=== PATIENT | male | born 1975 | race Caucasian/White ===

== ENCOUNTER 2020-02-26 14:24 | Emergency (ER) | payer OTHER ==
[~2020-02-26] VITALS: Ht 175.3 cm; Wt 108.9 kg
[~2020-02-26 14:24] MED LIST: CIPROFLOXACIN500 M1 PO; IBUPROFEN 600600 M1 PO; IMODIUM MULTI-1 EACH PO; NOHOMEMEDICATIONS; NORCO 5-325 TA1 EACH PO; PROTONIX40 MG PO; ZANTAC 150MG T150 MG PO; ZOFRAN ODT4 MG PO
[2020-02-26] MEDS ORDERED: IBUPROFEN 800800 MG PO (15:19)
[2020-02-26] MEDS ORDERED: TESSALON PERLE100 MG PO (15:19)
[2020-02-26 15:50] VITALS: BP 128/59
--- NOTE | 2020-02-27 07:31 | EKG ---
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 : 1975 Requested By: Adrián Jalloh Order Number: [id number] MD: Eduardo Cuello Measurements Intervals [place] Rate: 89 P: 71 VT: 135 QRS: 29 QRSD: 81 T: 57 QT: 341 QTc: 415 Interpretive Statements Sinus rhythm Probable left atrial enlargement Probable anteroseptal infarct, old Compared to ECG 12/30/2015 13:25:40 Myocardial infarct finding now present Electronically Signed On 02-27-2020 7:31:20 [employer] by Eduardo Cuello [email or web address] <ELECTRONICALLY SIGNED> By: Eduardo Cuello MD, FACC 02/27/20 0731 1429 1429 Eduardo Cuello MD, FAC /EPI
== END 2020-02-26 16:01 ==
LOC: ER 14:24
DX: S76.211A Strain of adductor muscle, fascia and tendon of right thigh, initial encounter (principal); J06.9 Acute upper respiratory infection, unspecified; F17.210 Nicotine dependence, cigarettes, uncomplicated; Z20.828 Contact with and (suspected) exposure to other viral communicable diseases; X58.XXXA Exposure to other specified factors, initial encounter; Y93.89 Activity, other specified; Y92.89 Other specified places as the place of occurrence of the external cause; Y99.8 Other external cause status